=== PATIENT | male | born 1995 | race Caucasian/White ===

== ENCOUNTER 2021-12-14 13:42 | Inpatient (IN) ==
[2021-12-14] MEDS ORDERED: ONDANSETRON 4 MG/2 ML VIAL IV PRN (13:49)
[2021-12-14] MEDS ORDERED: SODIUM CHLORIDE 0.9% 500 ML IV ONE (16:00)
[2021-12-14] MEDS: SODIUM CHLORIDE 0.9% 1,000 ML IV SCH (16:03)
[2021-12-14 16:19] LABS: Basophils % 0.3 % (0.0-0.8); Eosinophils % 0.3 % (0.00-10.9); Hematocrit 41.6 VOL% (42.0-52.0); Hemoglobin 14.7 GM/DL (14.0-18.0); Immature Granulocytes % 1.7 %; Immature Granulocytes Absolute 0.13 #; Lymphocytes # 0.4 10*3/uL (1.4-4.0); Lymphocytes % 4.8 % (21.2-54.2); Mean Corpuscular HGB Conc 35.3 GM/DL (32-36); Mean Corpuscular Volume 80.5 FL (87-102); Mean Platelet Volume 12.2 FL (9.6-12.0); Monocytes % 4.9 % (1.7-12.7); Platelet Count 138 T/CUMM (130-400); Red Blood Count 5.17 MC/CUMM (3.8-5.5); Red Cell Distribution Width 12.7 % (9.3-17.3); White Blood Count 7.6 T/CUMM (4-12)
[2021-12-14 16:38] LABS: Band Neutrophils 6 % (0-10); Lymphocytes 4 % (20-55); Segmented Neutrophils 84 % (50-85); Total Cells Counted 100
[2021-12-14 16:39] LABS: Platelet Estimate Adequate
[2021-12-14 16:43] LABS: Albumin 2.3 G/DL (3.4-5.0); Bilirubin,Total 0.9 MG/DL (0.20-1.00); Calcium 8.5 MG/DL (8.5-10.1); Osmolality,Calculated 272.8 MOS/KG (273-304); Potassium 3.5 MMOL/L (3.5-5.1); Total Protein 6.9 G/DL (6.4-8.2)
[2021-12-14] MEDS ORDERED: SODIUM CHLORIDE 0.9% 1,000 ML IV ONE (16:53)
[2021-12-14] MEDS: cefTRIAXone 2,000 MG in SODIUM CHLORIDE 0.9% 100 ML IV SCH (17:17)
[2021-12-14] MEDS: AZITHROMYCIN INJ 500 MG in SODIUM CHLORIDE 0.9% 250 ML IV SCH (18:46)
[2021-12-14] MEDS: ENOXAPARIN 40 MG/0.4 ML SYRINGE SUBCUT SCH (18:47)
[2021-12-14] MEDS: ACETAMINOPHEN 325 MG TABLET PO PRN (20:39)
[2021-12-14] MEDS: ALBUTEROL 2.5 MG/3 ML NEB RESP TX SCH (21:03)
[2021-12-14 21:55] LABS: Bilirubin,Urine Negative (Negative); Blood, Urine Small mg/dL (Negative); Glucose,Urine (UA) Negative (Negative); Granular Casts,Urine 1 /LPF (0-1); Hyaline Casts,Urine 4 /LPF (0-3); Ketones,Urine Negative (Negative); Nitrite,Urine Negative (Negative); Protein,Urine 100 MG/DL; RBC,Urine 3 /HPF (0-4); Urine Appearance Slightly Hazy (Clear); Urine Color Yellow (Yellow); Urine Specific Gravity 1.012 (1.001-1.035); Urine Urobilinogen < 2.0 EU/DL (<2.0)
[2021-12-15] MEDS: ALBUTEROL 2.5 MG/3 ML NEB RESP TX SCH ×4 (02:10→19:25)
[2021-12-15] MEDS: SODIUM CHLORIDE 0.9% 1,000 ML IV SCH ×3 (04:33→22:33)
[2021-12-15 05:49] LABS: Calcium 8.4 MG/DL (8.5-10.1); Osmolality,Calculated 275.4 MOS/KG (273-304); Potassium 3.3 MMOL/L (3.5-5.1)
[2021-12-15] MEDS: PANTOPRAZOLE 40 MG TABLET PO SCH (06:06)
[2021-12-15] MEDS ORDERED: SODIUM CHLORIDE 0.9% 1,000 ML IV ONE (07:30)
[2021-12-15] MEDS: cefTRIAXone 2,000 MG in SODIUM CHLORIDE 0.9% 100 ML IV SCH (16:22)
[2021-12-15] MEDS: ENOXAPARIN 40 MG/0.4 ML SYRINGE SUBCUT SCH (17:42)
[2021-12-15] MEDS: AZITHROMYCIN INJ 500 MG in SODIUM CHLORIDE 0.9% 250 ML IV SCH (17:42)
[2021-12-15] MEDS ORDERED: ZALEPLON 5 MG CAPSULE PO ONE (23:55)
[2021-12-16] MEDS: ACETAMINOPHEN 325 MG TABLET PO PRN (00:14)
[2021-12-16] MEDS: ALBUTEROL 2.5 MG/3 ML NEB RESP TX SCH ×4 (01:30→19:42)
[2021-12-16] MEDS: SODIUM CHLORIDE 0.9% 1,000 ML IV SCH ×2 (04:39→18:27)
[2021-12-16] MEDS: PANTOPRAZOLE 40 MG TABLET PO SCH (05:45)
[2021-12-16 05:55] LABS: Calcium 8.4 MG/DL (8.5-10.1); Osmolality,Calculated 279.5 MOS/KG (273-304); Potassium 3.8 MMOL/L (3.5-5.1)
[2021-12-16] MEDS: VANCOMYCIN INJ 1,750 MG in SODIUM CHLORIDE 0.9% 500 ML IV SCH ×2 (08:31→23:35)
[2021-12-16] MEDS: cefTRIAXone 2,000 MG in SODIUM CHLORIDE 0.9% 100 ML IV SCH (18:27)
[2021-12-16] MEDS: ENOXAPARIN 40 MG/0.4 ML SYRINGE SUBCUT SCH (20:13)
[2021-12-16] MEDS: AZITHROMYCIN INJ 500 MG in SODIUM CHLORIDE 0.9% 250 ML IV SCH (21:54)
[2021-12-17] MEDS: ALBUTEROL 2.5 MG/3 ML NEB RESP TX SCH ×4 (01:45→19:54)
[2021-12-17] MEDS: PANTOPRAZOLE 40 MG TABLET PO SCH (05:50)
[2021-12-17 06:55] LABS: Calcium 8.2 MG/DL (8.5-10.1); Osmolality,Calculated 281.3 MOS/KG (273-304); Potassium 3.2 MMOL/L (3.5-5.1)
[2021-12-17] MEDS: VANCOMYCIN INJ 1,750 MG in SODIUM CHLORIDE 0.9% 500 ML IV SCH ×2 (09:07→20:46)
[2021-12-17] MEDS: POTASSIUM CHLORIDE 10 MEQ TABLET PO SCH (10:03)
[2021-12-17] MEDS ORDERED: ALUMINUM/MAGNES/SIMETH MAX STR 30 ML UDCUP PO PRN (15:09)
[2021-12-17] MEDS: cefTRIAXone 2,000 MG in SODIUM CHLORIDE 0.9% 100 ML IV SCH (17:15)
[2021-12-17] MEDS: AZITHROMYCIN INJ 500 MG in SODIUM CHLORIDE 0.9% 250 ML IV SCH (18:02)
[2021-12-17] MEDS: SODIUM CHLORIDE 0.9% 1,000 ML IV SCH (18:02)
[2021-12-17] MEDS: ENOXAPARIN 40 MG/0.4 ML SYRINGE SUBCUT SCH (19:00)
[2021-12-17] MEDS: ACETAMINOPHEN 325 MG TABLET PO PRN (22:34)
[2021-12-18] MEDS: SODIUM CHLORIDE 0.9% 1,000 ML IV SCH ×2 (00:02→14:07)
[2021-12-18] MEDS: ALBUTEROL 2.5 MG/3 ML NEB RESP TX SCH ×4 (01:21→19:08)
[2021-12-18 05:32] LABS: Basophils % 0.4 % (0.0-0.8); Eosinophils # 0.4 10*3/uL (0.0-0.87); Eosinophils % 4.5 % (0.00-10.9); Hematocrit 37.5 VOL% (42.0-52.0); Hemoglobin 12.6 GM/DL (14.0-18.0); Immature Granulocytes % 1.9 %; Immature Granulocytes Absolute 0.15 #; Lymphocytes # 1.2 10*3/uL (1.4-4.0); Lymphocytes % 14.5 % (21.2-54.2); Mean Corpuscular HGB Conc 33.6 GM/DL (32-36); Mean Corpuscular Volume 83.5 FL (87-102); Mean Platelet Volume 11.2 FL (9.6-12.0); Monocytes % 8.4 % (1.7-12.7); Neutrophils % 70.3 % (38.7-73.9); Platelet Count 202 T/CUMM (130-400); Red Blood Count 4.49 MC/CUMM (3.8-5.5); Red Cell Distribution Width 12.7 % (9.3-17.3)
[2021-12-18] MEDS: PANTOPRAZOLE 40 MG TABLET PO SCH (05:33)
[2021-12-18 06:01] LABS: Calcium 7.8 MG/DL (8.5-10.1); Osmolality,Calculated 284.8 MOS/KG (273-304); Potassium 3.6 MMOL/L (3.5-5.1)
[2021-12-18] MEDS: POTASSIUM CHLORIDE 10 MEQ TABLET PO SCH (08:29)
[2021-12-18] MEDS: VANCOMYCIN INJ 1,750 MG in SODIUM CHLORIDE 0.9% 500 ML IV SCH ×2 (08:29→20:20)
[2021-12-18] MEDS: AZITHROMYCIN INJ 500 MG in SODIUM CHLORIDE 0.9% 250 ML IV SCH (16:34)
[2021-12-18] MEDS: ENOXAPARIN 40 MG/0.4 ML SYRINGE SUBCUT SCH (17:40)
[2021-12-18] MEDS: cefTRIAXone 2,000 MG in SODIUM CHLORIDE 0.9% 100 ML IV SCH (17:40)
[2021-12-19] MEDS: ALBUTEROL 2.5 MG/3 ML NEB RESP TX SCH ×3 (00:43→13:11)
[2021-12-19] MEDS: PANTOPRAZOLE 40 MG TABLET PO SCH (08:52)
[2021-12-19] MEDS: VANCOMYCIN INJ 1,750 MG in SODIUM CHLORIDE 0.9% 500 ML IV SCH (08:52)
[2021-12-19] MEDS: POTASSIUM CHLORIDE 10 MEQ TABLET PO SCH (08:52)
[2021-12-19 11:51] VITALS: BP 142/87
== END 2021-12-19 13:20 | disposition home or self-care (01) | DRG 194 ==
LOC: N.5E 15:04
PROVIDERS: ADMIT Family Medicine; ATTEND Family Medicine